=== PATIENT | female | born 1960 | race Caucasian/White ===

== ENCOUNTER → 2019-08-28 | Outpatient (CLI) | payer BC | LOC: LL.MAM 14:53 | PROVIDERS: ATTEND Nurse Practitioner Family | DX: Z12.31 Encounter for screening mammogram for malignant neoplasm of breast (principal) | CPT/HCPCS: 77063; 77067 ==

== ENCOUNTER 2021-01-06 08:00 | Day surgery (SDC) | payer BC ==
[~2021-01-06 08:00] MED LIST: Lactated Ringers 1,000 ML IV SCH; Sodium Chloride 0.9% 10 ML Syringe FLUSH PRN
[2021-01-06] MEDS ORDERED: Midazolam 1 MG/ML 2 ML SDV ONE ×2 (08:32→09:09)
[2021-01-06] MEDS ORDERED: Propofol 200 MG/20 ML SDV ONE ×2 (08:33→09:09)
--- NOTE | 2021-01-06 09:07 | PCM.HPR ---
H & P Addendum review - H & P Addendum Review Date of Original H & P: 12/31/20 Date Reviewed: 01/06/21 Time Reviewed: 08:55 Patient was Examined: No Changes
[2021-01-06] MEDS ORDERED: Bacitracin Oint 1 GM U/D Packet TOP ONE (09:35)
--- NOTE | 2021-01-06 09:48 | PCM.OPNOTE ---
- General Post-Op/Procedure Note Date of Surgery/Procedure: 01/06/21 Operative Procedure(s): R CTR Pre Op Diagnosis: R CTS Post-Op Diagnosis: Same Anesthesia Technique: Local, MAC Primary Surgeon: Enrico Montano Anesthesia Provider: Hermelinda Peace EBTracy in mLs: 0 Complications: None Condition: Good
--- NOTE | 2021-01-06 12:26 | OR ---
Date of Procedure: 01/06/2021 PREOPERATIVE DIAGNOSIS: Right carpal tunnel syndrome. POSTOPERATIVE DIAGNOSIS: Right carpal tunnel syndrome. PROCEDURE: Right carpal tunnel release. ANESTHESIA: Local MAC. HISTORY: This 60-year-old female has been scheduled for right carpal tunnel release. She has classic symptoms of carpal tunnel syndrome involving pain and paresthesias in her thumb, index, and long finger. EMG was obtained, which shows moderate carpal tunnel syndrome. I met with the patient prior to the procedure to review the risks and complications including ongoing symptoms after surgery. Informed consent was obtained. PROCEDURE IN DETAIL: Patient was brought to the operating room where IV sedation was administered. Right hand and forearm were prepped and draped sterilely. 4 mL of 1% lidocaine was used for local anesthesia. The palmar crease was infiltrated and an incision made over the ligament and extended through the palmar aponeurosis and subcutaneous tissue until the transverse carpal ligament was identified. The ligament was split sharply until the median nerve was visible. The ligament was then split distally into the palm and proximally into the wrist. Finger palpation and inspection revealed all constricting bands to be released. The incision was closed with interrupted 4-0 Prolene vertical mattress sutures. Antibiotic ointment and a bulky sterile pressure dressing were applied. The patient tolerated the procedure well. BLOOD LOSS: None. CONDITION: She returned to postanesthesia in stable condition. ROBERTA LANE MD /[id number]
== END 2021-01-06 11:06 | disposition home or self-care (01) ==
LOC: LL.SDS 08:00
PROVIDERS: ATTEND Surgery
DX: G56.01 Carpal tunnel syndrome, right upper limb (principal); M17.0 Bilateral primary osteoarthritis of knee; M18.11 Unilateral primary osteoarthritis of first carpometacarpal joint, right hand; J45.20 Mild intermittent asthma, uncomplicated; F17.210 Nicotine dependence, cigarettes, uncomplicated; E66.9 Obesity, unspecified; Z68.41 Body mass index [BMI] 40.0-44.9, adult; Z01.812 Encounter for preprocedural laboratory examination; Z20.822 Contact with and (suspected) exposure to COVID-19; Z88.6 Allergy status to analgesic agent; Z79.899 Other long term (current) drug therapy; Z98.890 Other specified postprocedural states
CPT/HCPCS: 01830; J2250; J2704; J7120; U0002